=== PATIENT | male | born 1940 | race Caucasian/White ===

== ENCOUNTER 2024-04-04 09:39 | Observation (INO) ==
[~2024-04-04 09:39] MED LIST: NS 0.45% 1000 ml BAG 1,000 ML IV SCH; Naloxone 0.4 mg VIAL 0.4 mg/ml 1 ml VIAL IV PRN; Ondansetron 4 mg VIAL 2 MG/ML 2 ml VIAL IV PRN; fentaNYL 100 mcg/2 ml 50 MCG/ML VIAL IV PRN
[2024-04-04] MEDS ORDERED: ceFAZolin 2 GM PREMIX 2 GM/50 ML BAG ONE (10:37)
[2024-04-04] MEDS ORDERED: Tranexamic Acid 1 GM/100ML BAG 2,000 MG/200 ML BAG IV ONE (10:37)
[2024-04-04 10:38] LABS: Rapid COVID-19 Molecular Undetected (Undetected)
[2024-04-04] MEDS: Lactated Ringers 1000 ml BAG 1,000 ML IV SCH ×3 (11:01→19:27)
[2024-04-04] MEDS ORDERED: Dexamethasone IV 4 MG/ML VIAL 1 ml VIAL ONE (12:20)
[2024-04-04] MEDS ORDERED: Midazolam 2 mg/2 ml VIAL 1 mg/ml 2 ml VIAL (2 mg) ONE ×2 (12:20→13:05)
[2024-04-04] MEDS ORDERED: fentaNYL 100 mcg/2 ml 50 MCG/ML VIAL ONE ×2 (12:20→13:05)
[2024-04-04] MEDS ORDERED: ROPIVACAINE 5 MG/ML 30 ML BTL (0.5%) ONE (12:20)
[2024-04-04] MEDS ORDERED: Ondansetron 4 mg VIAL 2 MG/ML 2 ml VIAL ONE (13:05)
[2024-04-04] MEDS ORDERED: Propofol 10 mg/ml 100 ML BTL 1,000 MG/100 ML BTL ONE (13:05)
[2024-04-04] MEDS ORDERED: Lidocaine 2% PF 5 ML VIAL ONE (13:05)
[2024-04-04] MEDS ORDERED: Sterile Water for Inj 10 ML ONE (13:26)
[2024-04-04] MEDS ORDERED: Propofol 10 MG/ML 20 ML BTL ONE (14:50)
[2024-04-04] MEDS ORDERED: Magnesium Hydroxide LIQ 30 ML UDC PO PRN (15:20)
[2024-04-04] MEDS ORDERED: Calcium Carb (TUMS) 500 mg CHEW TAB PO PRN (15:20)
[2024-04-04] MEDS ORDERED: Lactulose 30 ml UDC PO PRN (15:20)
[2024-04-04] MEDS ORDERED: Ondansetron 4 mg VIAL 2 MG/ML 2 ml VIAL IV PRN (15:20)
[2024-04-04] MEDS ORDERED: Morphine 2 MG/ML SYRINGE IV PRN (15:20)
[2024-04-04] MEDS ORDERED: Ondansetron ODT 4 mg TAB 4 MG TAB PO PRN (15:20)
[2024-04-04] MEDS: Acetaminophen IV 1 GM/100ML 1,000 MG/100 ML BAG IV ONE (16:58)
[2024-04-04] MEDS: Buffered Lidocaine 1% SYRIN 1 ml INTRADERM ONE (16:58)
[2024-04-04] MEDS ORDERED: Dextrose 50% Syringe 50 ml 25 GM/50 ML SYRINGE IV PUSH PRN (17:59)
[2024-04-04] MEDS: Magnesium Hydroxide LIQ 30 ML UDC PO SCH (20:58)
[2024-04-04] MEDS: ceFAZolin 2 GM PREMIX 2 GM/50 ML BAG IV SCH (21:03)
[2024-04-04] MEDS: Insulin GLARGINE 100 un/ml 10 ml VIAL SUBCUT SCH (21:04)
[2024-04-05 07:07] LABS: Hematocrit 25.3 % (38-53); Hemoglobin 8.8 g/dL (13.2-16.3); Mean Platelet Volume 8.6 fL (7.5-11.2); Platelet Count 272 10^3/uL (150-450)
[2024-04-05 07:28] LABS: Calcium 8.1 mg/dL (8.6-10.3); Creatinine, Serum 1.51 mg/dL (0.67-1.17); Potassium 4.8 mmol/L (3.5-5.0); eGFR CKD-EPI 46.1 (>60)
[2024-04-05] MEDS: Vitamin THERAPEUTIC TAB PO SCH (08:19)
[2024-04-05] MEDS: Aspirin EC 81 mg TAB.EC (enteric coated) PO SCH (08:20)
[2024-04-05] MEDS: CMCS:Dorzolamide/Timolol OPTH (NF) 10 ML BOT BOTH EYES SCH (08:21)
[2024-04-05] MEDS: Latanoprost 0.005% 2.5 ml BTL BOTH EYES SCH (08:28)
[2024-04-05] MEDS: Nebivolol 2.5 mg TAB (NF) PO SCH (08:30)
[2024-04-05 09:36] VITALS: BP 111/54
== END 2024-04-05 13:11 | disposition home or self-care (01) ==
LOC: OR 09:39 → SSU 09:39
PROVIDERS: ADMIT Orthopaedic Surgery Adult Reconstructive Orthopaedic Surgery; ATTEND Orthopaedic Surgery Adult Reconstructive Orthopaedic Surgery